=== PATIENT | female | born 1960 | race Caucasian/White ===

== ENCOUNTER 2016-10-17 18:55 | Emergency (ER) | payer BC ==
[2016-10-17] MEDS ORDERED: SULFAMETHOXAZOLE/TRIMETHOPRIM 800/160 MG TABLET PO ONE (19:05)
--- NOTE | 2016-10-17 19:13 | PDOC ---
Skin Rash/Insect/Abscess HPI - General Chief Complaint: Integumentary Stated Complaint: INSECT BITE Date Seen by Provider: 10/17/16 Time Seen by Provider: 19:07 Source: POSITIVE: Patient Exam Limitations: POSITIVE: No limitations Nurse's Notes Reviewed & Considered: Yes - History of Present Illness Initial Comments: Patient was at [facility] and was bitten on her left posterior knee by an unknown bug. Now with erythemia and mild pain. She denies fever, chills, or sweats, no n/v/d. No shortness of breath or chest tightness. No other symptoms. Have you received a tetanus shot in the past 10 years?: Unknown Body Location Affected: REPORTS: Lower Extremity (L) Timing: REPORTS: Abrupt Duration: 1-3 hours Severity: Moderate Quality: REPORTS: "Pain" Identified Causes: REPORTS: Possibly When Exposed: REPORTS: Just Prior to Sx Onset Where Exposed: REPORTS: Home Suspected Etiology: REPORTS: Ant Bite Similar Symptoms Previously: No Recent Care Received: REPORTS: Denies Any Prior Injuries Related to Current Complaint?: No ROS Constitution: REPORTS: Denies Symptoms Cardiovascular: REPORTS: Denies Cardiac Symptoms Respiratory: REPORTS: Denies Resp Symptoms Neurological: REPORTS: Denies Neuro Symptoms Gastrointestinal: REPORTS: Denies GI Symptoms Endocrine: REPORTS: Denies Symptoms Musculoskeletal: REPORTS: Denies MS Symptoms Genitourinary: REPORTS: Denies Symptoms Eyes: REPORTS: Denies Symptoms ENT: REPORTS: Denies Symptoms Skin: REPORTS: Other (erythemia L posterior knee) Lympathic: REPORTS: Denies Lympathic Symptoms Immunologic: POSITIVE: Denies Symptoms Psychiatric: POSITIVE: Denies Psych Symptoms Skin Rash/Insect/Abscess Exam - General Appearance General Appearance: REPORTS: Alert, Cooperative, No Acute Distress, No Evidence of Trauma - Skin Skin: REPORTS: Warm, Dry, Normal Color, Wtih Erythema Skin Location: REPORTS: Extremities Skin Character: REPORTS: Erythematous Skin Symptoms: REPORTS: Warmth, Tenderness - Extremities Extremity: Non-Tender: (All Extremities), Normal ROM: (All Extremities), Normal Inspection: (All Extremities) - HEENT HEENT: POSITIVE: Head Inspection Nml, Eyes Inspection Nml, Ears Inspection Nml, Nose Inspection Nml, Oral/Dental Inspect. Nml, Pharynx Inspect. Nml, PERRL, EOMI - Neck Neck: REPORTS: Trachea Midline, No Swelling - Respiratory Respiratory: REPORTS: No Respiratory Distress Skin Rash/Abscess Progress - Patient's Progress Pain Medication Addressed: POSITIVE: Not Applicable Re-Examine Time:: 19:10 Status: POSITIVE: Improved MDM / ED Course: Patient examined. ASSESSMENT: bug bite with cellulitis PLAN: Discharge home, Bactrim DS for one week. Followup with PCP upon return home. - Consult Counseled: POSITIVE: Patient, Family, RE: DX, RE: Need for F/U Patient Care Time - Estimated PCT Patient Care Time (In Minutes): 10 Vital Signs - VS Reviewed Vital Signs Reviewed: Yes Discharge Clinical Impression: Insect bite - wound Discharge Disposition: Discharged to Home Condition: Stable Patient Instructions Given at Discharge: Insect Bite or Sting (ED), Cellulitis (ED)
[2016-10-18 00:32] VITALS: RESP 16; TEMP 97
== END 2016-10-17 19:25 | disposition home or self-care (01) ==
LOC: ER 18:55
DX: L03.116 Cellulitis of left lower limb (principal); S80.262A Insect bite (nonvenomous), left knee, initial encounter; W57.XXXA Bitten or stung by nonvenomous insect and other nonvenomous arthropods, initial encounter
CPT/HCPCS: 99282